=== PATIENT | female | born 1965 | race Caucasian/White ===

== ENCOUNTER → 2016-06-13 | Outpatient (REF) ==
[~2016-06-13] MED LIST: CITALOPRAM10 MG PO; LEVOTHYROXINE0.1 MG PO; LORTAB 5/500 501 TAB PO; PROTONIX 40MG T40 MG PO
== END ==
LOC: WSOH 09:50
DX: Z01.89 Encounter for other specified special examinations (principal)

== ENCOUNTER → 2016-11-24 | Outpatient (CLI) | payer OTHER | LOC: MC.RAD 15:49 | DX: Z12.31 Encounter for screening mammogram for malignant neoplasm of breast (principal) ==

== ENCOUNTER → 2018-12-05 | Outpatient (CLI) | payer OTHER | LOC: MC.RAD 08:19 | DX: Z12.31 Encounter for screening mammogram for malignant neoplasm of breast (principal) ==

== ENCOUNTER 2018-12-31 07:45 | Day surgery (SDC) | payer OTHER ==
[~2018-12-31] VITALS: Ht 160 cm; Wt 79.9 kg
[2018-12-31 08:03] VITALS: BP 122/93; PULSE 80; TEMP 98.9
[2018-12-31 10:00] VITALS: BP 118/80; PULSE 85; TEMP 98.5
--- NOTE | 2018-12-31 10:00 | NUR ---
TO [facility]AY 4 PER CART FROM ENDOSCOPY. ALERT ORIENTED X3, TALKING TO STAFF AND . AMBULATED WITH ASSIST TO RECLINER. RECEIVED WATER.
[2018-12-31 10:15] VITALS: BP 123/73; PULSE 78
--- NOTE | 2018-12-31 10:15 | NUR ---
DR SANDOVAL INTO TALK WITH PATIENT AND HER .
[2018-12-31 10:30] VITALS: BP 107/63; BP 109/63; PULSE 70
--- NOTE | 2018-12-31 10:30 | NUR ---
RECEIVED MUFFIN AND DRINKING COFFEE BROUGHT FROM HOME.
[2018-12-31 10:45] VITALS: BP 109/63; PULSE 70
--- NOTE | 2018-12-31 10:45 | NUR ---
ATE 1/2 MUFFIN AND TOLERATED WELL DENIES NAUSEA
--- NOTE | 2018-12-31 10:50 | NUR ---
RECEIVED DISCHARGE INSTRUCTIONS AND VERBALIZED UNDERSTANDING. DISCONTINUED IV AND INT- CATHETER INTACT.
--- NOTE | 2018-12-31 11:00 | NUR ---
DISCHARGED PER WC BY NURSING STAFF TO PRIVATE CAR IN CARE OF
--- NOTE | 2018-12-31 11:26 | NUR ---
Initial visit; Prayer request prior surgical procedure. [employer] Bus Driver offered encouragement and prayer for Arleen and her prior to 'Procedure'.
== END 2018-12-31 11:00 | disposition home or self-care (01) ==
LOC: SDCO 07:45
DX: K21.0 Gastro-esophageal reflux disease with esophagitis (principal); D12.5 Benign neoplasm of sigmoid colon; K29.80 Duodenitis without bleeding; K31.7 Polyp of stomach and duodenum; K44.9 Diaphragmatic hernia without obstruction or gangrene; D50.9 Iron deficiency anemia, unspecified; K21.9 Gastro-esophageal reflux disease without esophagitis; F32.9 Major depressive disorder, single episode, unspecified; M19.90 Unspecified osteoarthritis, unspecified site
CPT/HCPCS: J2704; J3010; J7030

== ENCOUNTER → 2020-09-03 | Outpatient (CLI) | payer OTHER | LOC: COL.RAD 06:57 | DX: M51.36 Other intervertebral disc degeneration, lumbar region (principal); M48.061 Spinal stenosis, lumbar region without neurogenic claudication; M48.08 Spinal stenosis, sacral and sacrococcygeal region ==

== ENCOUNTER → 2021-02-10 | Outpatient (CLI) | payer OTHER | LOC: MC.RAD 08:37 | DX: Z12.31 Encounter for screening mammogram for malignant neoplasm of breast (principal) ==

== ENCOUNTER → 2023-12-19 | Outpatient (CLI) | payer OTHER ==
[~2023-12-19] MED LIST changes: +Iohexol 300 - 10 ML VIAL IV ONE; +Triamcinolone 40 MG/ML 1 ML VIAL IJ ONE
== END ==
LOC: COL.RAD 07:33
DX: M25.552 Pain in left hip (principal)
CPT/HCPCS: J0665; J3301; Q9967

== ENCOUNTER → 2024-02-14 | Outpatient (CLI) | payer OTHER ==
[~2024-02-14] MED LIST changes: +IRON TABLETS325 MG PO; +PRILOSEC 20MG20 MG PO; +SYNTHROID0.112 MG/T PO
== END ==
LOC: COL.RAD 09:58
DX: M25.551 Pain in right hip (principal)
CPT/HCPCS: J0665; J3301; Q9967

== ENCOUNTER 2024-02-16 09:27 | Day surgery (SDC) | payer OTHER ==
[~2024-02-16] VITALS: Ht 161.3 cm; Wt 79.3 kg
[~2024-02-16 09:27] MED LIST changes: -IRON TABLETS325 MG PO; -Iohexol 300 - 10 ML VIAL IV ONE; +LR 1,000 ML IV SCH; +Ondansetron 4 MG/2 ML VIAL IV PRN; -PRILOSEC 20MG20 MG PO; -SYNTHROID0.112 MG/T PO; -Triamcinolone 40 MG/ML 1 ML VIAL IJ ONE
[2024-02-16] MEDS ORDERED: SYNTHROID0.112 MG/T PO (10:07)
[2024-02-16] MEDS ORDERED: PRILOSEC 20MG20 MG PO (10:07)
[2024-02-16] MEDS ORDERED: IRON TABLETS325 MG PO (10:09)
[2024-02-16 10:44] VITALS: BP 169/82; PULSE 60; TEMP 99.1
--- NOTE | 2024-02-16 10:47 | NUR ---
PATIENT ADMITTED TO [facility]. ORIENTED TO ROOM. CONSENT SIGNED. REPORTS GOOD RESULTS FROM THE PREP. IVF INFUSING. CALL LIGHT IN REACH.
[2024-02-16] MEDS ORDERED: Lidocaine PF 2% (20 MG/ML) 5 ML VIAL ONE (11:44)
[2024-02-16 12:30] VITALS: BP 123/90; PULSE 68; TEMP 98.3
[2024-02-16 12:45] VITALS: BP 101/65; PULSE 72
[2024-02-16 13:00] VITALS: BP 114/76; PULSE 76
[2024-02-16 13:15] VITALS: BP 141/74; PULSE 66
--- NOTE | 2024-02-16 13:35 | NUR ---
1230 RETURNS TO ROOM 9 PER CART. AWAKE, ALERT. RESP UNLABORED. AMBULATES TO RECLINER WITH STANDBY ASSIST. DENIES NAUSEA OR ABD PAIN OR DYSPHAGIA. VITAL SIGNS OBTAINED. CALL LIGHT AT SIDE. 1245 TOLERATES PO SODA AND MUFFIN WITHOUT NAUSEA. SWALLOWS WITHOUT DIFFICULTY 1255 DR. SANDOVAL HERE TO VISIT WITH PATIENT 1310 DISCHARGE INSTRUCTIONS REVIEWED. PATIENT VERBALIZES UNDERSTANDING. COPY PROVIDED IN DISCHARGE FOLDER 1325 DRESSES SELF, THEN AMBULATES TO BATHROOM WITH STANDBY ASSIST.
== END 2024-02-16 13:35 | disposition home or self-care (01) ==
LOC: SDCO 09:27
DX: Z12.11 Encounter for screening for malignant neoplasm of colon (principal); K20.90 Esophagitis, unspecified without bleeding; K31.811 Angiodysplasia of stomach and duodenum with bleeding; K44.9 Diaphragmatic hernia without obstruction or gangrene; E66.9 Obesity, unspecified; Z79.899 Other long term (current) drug therapy; Z86.0100 Personal history of colon polyps, unspecified
CPT/HCPCS: J2704; J7120